=== PATIENT | male | born 2000 | race Caucasian/White ===

== ENCOUNTER 2024-05-02 09:31 | Inpatient (IN) | payer OTHER ==
[~2024-05-02] VITALS: Ht 185.4 cm; Wt 64.8 kg
[~2024-05-02 09:31] MED LIST: BACTROBAN22 TOP; CEPHALEXIN500 M1 PO; PREDNISONE50 MG PO
[2024-05-02] MEDS ORDERED: NS 1,000 ML IV ONE (10:30)
[2024-05-02 10:35] LABS: BASO # 0.1 K/mm3 (0.0-0.2); BASO % 0.9 % (0.0-2.0); EOS % 0.2 % (0.0-4.0); GRAN % 59.7 % (42.2-75.2); HEMATOCRIT 42.6 % (42.0-52.0); HEMOGLOBIN 14.5 g/dl (13.5-18.0); LYMPH # 1.5 K/mm3 (1.2-3.4); LYMPH % 22.6 % (20.0-51.0); MEAN CELL VOLUME 88 fl (80.0-100.0); MEAN CORPUSCULAR HEMOGLOBIN 30 pg (27-31); MEAN CORPUSCULAR HGB CONC 34 g/dl (33.0-37.0); MEAN PLATELET VOLUME 9.9 fl (7.4-10.4); MONO # 1.1 K/mm3 (0.1-0.6); MONO % 16.4 % (1.7-9.3); PLATELET COUNT 160 K/mm3 (130-400); RED BLOOD COUNT 4.86 M/mm3 (4.20-5.60); REDCELL DISTRIBUTION WIDTH-CV 12.6 % (11.5-14.5)
[2024-05-02 10:47] LABS: ALBUMIN 4.4 g/dL (3.5-5.0); BILIRUBIN,TOTAL 0.7 mg/dL (0.2-1.2); CALCIUM 9.1 mg/dL (8.4-10.2); CREATININE, serum 0.79 mg/dL (0.72-1.25); POTASSIUM 3.5 mEq/L (3.5-4.5); TOTAL PROTEIN 7.6 g/dl (6.2-8.1)
[2024-05-02] MEDS ORDERED: Iohexol 300 - 100 ML VIAL IV ONE (10:59)
[2024-05-02] MEDS ORDERED: NS 100 ML IV SCH (11:00)
[2024-05-02] MEDS ORDERED: cefTRIAXone 2 G in Water For Injection,Sterile 20 ML IV SCH (12:39)
[2024-05-02] MEDS ORDERED: Ondansetron 4 MG/2 ML VIAL IV ONE (13:00)
[2024-05-02] MEDS ORDERED: TYLENOL 500MG500 MG PO (13:30)
[2024-05-02] MEDS ORDERED: BENADRYL50 MG PO (13:31)
[2024-05-02] MEDS ORDERED: NS 1,000 ML IV SCH (13:45)
[2024-05-02] MEDS ORDERED: *Potassium Replacement Protocol MC SCH (13:45)
--- NOTE | 2024-05-02 13:48 | NUR ---
PT ARRIVED VIA W/C TO ROOM 319 FROM ED. FAMILY AT BEDSIDE. PT A&O X4. VSS. IV CDI. PT AMBULATED INDEPENDENTLY TO BED. DENIES PAIN & DISCOMFORT. NURSE ORIENTED PT TO LOCATION, ROOM, & CALL LIGHT. CONTACT PRECAUTIONS IN PLACE. CALL LIGHT W/IN REACH. NO FURTHER NEEDS EXPRESSED.
[2024-05-02 13:53] VITALS: BP 127/81; PULSE 74; TEMP 100
[2024-05-02 13:54] VITALS: BP_SYST 127
--- NOTE | 2024-05-02 14:51 | NUR ---
FRANCESCA met with patient and family to complete initial assessment for discharge planning. Patient verified that he lives in [place] with his significant other Suyapa ([phone]) and lists his mother Dayanara ([phone]) as contact. Patient denies having a PCP, uses [facility] without difficulty and is covered by [employer] insurance. Patient denies having a DPOA and declines to complete one at this time. List of PCP providers provided for patient to establish for care. Plan is to return home when medically stable. Discharge plan: Home
[2024-05-02 15:46] VITALS: BP 129/75; PULSE 68; TEMP 98.7
[2024-05-02] MEDS ORDERED: diphenhydrAMINE 25 MG CAP PO PRN (16:15)
[2024-05-02] MEDS ORDERED: Acetaminophen 325 MG TAB PO PRN (16:15)
[2024-05-02 16:41] VITALS: BP_SYST 129
[2024-05-02] MEDS ORDERED: Potassium Bicarbonate/Citrate 20 MEQ Effervescent TAB PO SCH (18:00)
--- NOTE | 2024-05-02 19:11 | NUR ---
Agree with LEON Mac assessment of the patient. No further needs expressed. Contact precautions in place. Call light within reach
[2024-05-02 19:37] VITALS: BP 115/70; PULSE 75; TEMP 98.5
[2024-05-02 19:45] VITALS: BP_SYST 115
[2024-05-03] VITALS (10 sets, daily range): BP systolic 120–131; BP diastolic 69–80; PULSE 77–96; TEMP 98.8–100.4
[2024-05-03] MEDS ORDERED: dexAMETHasone 10 MG/ML VIAL IV SCH (09:00)
[2024-05-03] MEDS ORDERED: methylPREDNISolone Sod Succ 125 MG/2 ML VIAL IV ONE (09:00)
--- NOTE | 2024-05-03 09:30 | NUR ---
Patient getting back from restroom. Alert and oriented x4, denies any pain. Gettign fluids and antibiotics per orders. Assessment completed, no other needs at this time. Call light within reach.
[2024-05-03 09:47] LABS: BASO % 0.7 % (0.0-2.0); EOS % 0.7 % (0.0-4.0); GRAN # 3.3 K/mm3 (1.4-6.5); GRAN % 58.1 % (42.2-75.2); HEMATOCRIT 42.9 % (42.0-52.0); HEMOGLOBIN 14.9 g/dl (13.5-18.0); LYMPH # 1.3 K/mm3 (1.2-3.4); LYMPH % 22.7 % (20.0-51.0); MEAN CELL VOLUME 87 fl (80.0-100.0); MEAN CORPUSCULAR HEMOGLOBIN 30 pg (27-31); MEAN CORPUSCULAR HGB CONC 35 g/dl (33.0-37.0); MEAN PLATELET VOLUME 10.2 fl (7.4-10.4); MONO % 17.6 % (1.7-9.3); PLATELET COUNT 162 K/mm3 (130-400); RED BLOOD COUNT 4.96 M/mm3 (4.20-5.60); REDCELL DISTRIBUTION WIDTH-CV 12.7 % (11.5-14.5)
[2024-05-03 10:11] LABS: CALCIUM 8.8 mg/dL (8.4-10.2); CREATININE, serum 0.75 mg/dL (0.72-1.25); POTASSIUM 3.9 mEq/L (3.5-4.5)
--- NOTE | 2024-05-03 14:31 | NUR ---
Patient is back from MRI.
--- NOTE | 2024-05-03 18:07 | NUR ---
Report given to JANNET Short in [facility]. Patient aware of transfer, he signed consent. Awaiting EMS for transportation.
--- NOTE | 2024-05-03 19:19 | NUR ---
patient alert and oriented x4, ambulating with steady gait, family at bedside. EMS arrived to transfer pt to [facility]. LAC IV patent, site CDI. report given to EMS, vitals stable. Pt depart via EMS at 1914, Deja from [facility] notified of departure. care passed at this time.
== END 2024-05-03 19:14 | disposition short-term general hospital (02) | DRG 603 ==
LOC: COL.ER 09:31 → MEDICAL 12:04
PROVIDERS: Physician Assistant; ADMIT Internal Medicine
DX: L03.213 Periorbital cellulitis (principal); M25.561 Pain in right knee; L01.09 Other impetigo; J01.00 Acute maxillary sinusitis, unspecified; Z90.49 Acquired absence of other specified parts of digestive tract; Z79.899 Other long term (current) drug therapy
CPT/HCPCS: J0696; J1100; J2405; J2919; J3370; J7030; J7050; Q3014; Q9967